=== PATIENT | female | born 1950 | race Caucasian/White ===

== ENCOUNTER 2019-10-16 15:56 | Emergency (ER) | payer SELFPAY ==
[~2019-10-16] VITALS: Ht 149.9 cm; Wt 62.0 kg
[2019-10-16 15:58] VITALS: BP 121/90
== END 2019-10-16 20:52 | disposition left against medical advice (07) ==
LOC: ER 15:56
DX: R51 Headache (principal); Z53.21 Procedure and treatment not carried out due to patient leaving prior to being seen by health care provider